=== PATIENT | male | born 1965 | race Caucasian/White ===

== ENCOUNTER 2018-11-24 16:16 | Observation (INO) | payer BC, OTHER ==
[~2018-11-24] VITALS: Ht 190.5 cm; Wt 116.6 kg
[2018-11-24 16:30] VITALS: BP 135/83
[2018-11-24] MEDS ORDERED: ROSUVASTATIN 40MG (16:38)
[2018-11-24] MEDS ORDERED: HCT (16:38)
[2018-11-24] MEDS ORDERED: LOSARTAN (16:38)
[2018-11-24] MEDS ORDERED: ASPIRIN 81 MG CHEW (CHILDREN'S ASA) PO ONE (16:45)
[2018-11-24] MEDS ORDERED: ONDANSETRON 4 MG/2 ML (SDV) Z0FRAN IVP ONE (16:45)
[2018-11-24] MEDS: NITROGLYCERIN 0.4 MG SL TABS BTL 25'S SL PRN ×2 (16:50→17:05)
[2018-11-24 16:53] LABS: WHITE BLOOD COUNT 7.9 10^3/uL (4.3-11.0)
[2018-11-24 16:54] LABS: HEMATOCRIT 44 % (40-54); HEMOGLOBIN 15.1 G/DL (13.3-17.7); MEAN CORPUSCULAR HEMOGLOBIN 31 PG (25-34); MEAN CORPUSCULAR HGB CONC 34 G/DL (32-36); MEAN CORPUSCULAR VOLUME 89 FL (80-99); MEAN PLATELET VOLUME 9.4 FL (7.4-10.4); PLATELET COUNT 206 10^3/uL (130-400); RED CELL DISTRIBUTION WIDTH 13.3 % (10.0-14.5)
[2018-11-24 16:55] LABS: BASOPHILS % (AUTO) 0 % (0-10); EOSINOPHILS # (AUTO) 0.1 10^3/uL (0.0-0.3); EOSINOPHILS % (AUTO) 2 % (0-10); LYMPHOCYTES # (AUTO) 1.5 X 10^3 (1.0-4.0); LYMPHOCYTES % (AUTO) 19 % (12-44); MONOCYTES # (AUTO) 0.8 X 10^3 (0.0-1.0); MONOCYTES % (AUTO) 10 % (0-12); NEUTROPHILS # (AUTO) 5.5 X 10^3 (1.8-7.8); NEUTROPHILS % (AUTO) 69 % (42-75)
[2018-11-24 17:00] VITALS: BP 118/67
[2018-11-24 17:02] LABS: PROTHROMBIN TIME PATIENT 13.5 SEC (12.2-14.7)
--- NOTE | 2018-11-24 17:09 | ED Chest Pain ---
General Chief Complaint: Chest Pain Stated Complaint: CHEST PAIN, SOB Nursing Triage Note: PT REPORTSHE WAS RIDING IN A CAR BACK FROM [facility] AND STARTED HAVING CHEST TIGHTNESS, SHORTNESS OF BREATH, AND FEELING TIRED. HE HAS FELT NAUSEATED OFF AND ON ALL DAY. Nursing Sepsis Screen: No Definite Risk History of Present Illness Date Seen by Provider: Nov 24, 2018 Time Seen by Provider: 16:30 Initial Comments The patient is a 53-year-old male with a history of hypertension, hyperlipidemia, coronary artery disease status post stenting of the LAD (per pt) more than 10 years ago, current and longstanding active tobacco abuse. He presents with concern for acute onset of dull, squeezing, pressure-like substernal chest discomfort with onset about 30 minutes prior to arrival while he was riding in a car back from [facility]. Pain radiates to the left shoulder into the neck and straight through to the intrascapular back. Discomfort is not described as ripping or tearing. Associated nausea which began about 1 hour prior to onset of chest discomfort. Associated mild shortness of breath. No associated fever, vomiting, hematemesis, hematochezia, melena, cough, diaphoresis, abdominal pain, flank pain. Patient has never had this kind of discomfort before. Patient denies recent immobilization, hemoptysis, surgery, calf pain or swelling, personal or family history of venous thromboembolic disease, estrogen or steroid use. Allergies and Home Medications Allergies Coded Allergies: morphine (Verified Allergy, Mild, 11/24/18) Patient Home Medication List Home Medication List Reviewed: Yes Review of Systems Review of Systems Constitutional: see HPI All Other Systems Reviewed Negative Unless Noted: Yes (Negative excepted noted.) Past Dhvymqo-Qdeydy-Tmzvpz Hx Past Med/Social Hx: Reviewed Nursing Past Med/Soc Hx Patient Social History Alcohol Use: Denies Use Recreational Drug Use: No Smoking Status: Current Everyday Smoker Type Used: Cigarettes 2nd Hand Smoke Exposure: Yes Recent Foreign Travel: No Contact w/Someone Who Travel: No Recent Infectious Disease Expo: No Recent Hopitalizations: No Physical Abuse: No Sexual Abuse: No Mistreated: No Fear: No Seasonal Allergies Seasonal Allergies: No Past Medical History Surgeries: Yes Coronary Stent Respiratory: No Cardiac: Yes High Cholesterol, Hypertension Neurological: No Genitourinary: No Gastrointestinal: No Musculoskeletal: No Endocrine: No HEENT: No Cancer: No Psychosocial: No Integumentary: No Blood Disorders: No Family Medical History Reviewed Nursing Family Hx Physical Exam Vital Signs Vital Signs - First Documented 11/24/18 11/24/18 16:19 16:30 Temp 96.8 Pulse 69 Resp 17 B/P (MAP) 123/80 (94) Pulse Ox 99 O2 Delivery Room Air Capillary Refill : Less Than 3 Seconds Height, Weight, BMI Height: 6'3.00" Weight: 260lbs. oz. 117.032993uh; BMI Method:Stated General Appearance: No Apparent Distress Other comments This is an older male appearing nontoxic and in no acute distress. Head is normocephalic and atraumatic. Neck is supple and nontender. Oropharynx is moist. Lungs are clear to auscultation at all stations. There is a normal S1 and S2 without rubs or gallops and capillary refill is appropriate, less than 2 seconds globally. Abdomen soft, nontender and nondistended without pulsatile mass noted. Skin is warm and dry without cyanosis, clubbing or edema. Psychiatrically, the patient demonstrates appropriate mood and affect and is alert. Evaluation of the bilateral upper and lower extremities reveals 2+ peripheral pulses to all extremities and all extremities warm and well perfused. Progress/Results/Core Measures Results/Orders Lab Results Laboratory Tests Test 11/24/18 16:24 Range/Units White Blood Count 7.9 4.3-11.0 10^3/uL Red Blood Count 4.95 4.35-5.85 10^6/uL Hemoglobin 15.1 13.3-17.7 G/DL Hematocrit 44 40-54 % Mean Corpuscular Volume 89 80-99 FL Mean Corpuscular Hemoglobin 31 25-34 PG Mean Corpuscular Hemoglobin Concent 34 32-36 G/DL Red Cell Distribution Width 13.3 10.0-14.5 % Platelet Count 206 130-400 10^3/uL Mean Platelet Volume 9.4 7.4-10.4 FL Neutrophils (%) (Auto) 69 42-75 % Lymphocytes (%) (Auto) 19 12-44 % Monocytes (%) (Auto) 10 0-12 % Eosinophils (%) (Auto) 2 0-10 % Basophils (%) (Auto) 0 0-10 % Neutrophils # (Auto) 5.5 1.8-7.8 X 10^3 Lymphocytes # (Auto) 1.5 1.0-4.0 X 10^3 Monocytes # (Auto) 0.8 0.0-1.0 X 10^3 Eosinophils # (Auto) 0.1 0.0-0.3 10^3/uL Basophils # (Auto) 0.0 0.0-0.1 10^3/uL Prothrombin Time 13.5 12.2-14.7 SEC INR Comment 1.0 0.8-1.4 Activated Partial Thromboplast Time 33 24-35 SEC Sodium Level 142 135-145 MMOL/L Potassium Level 4.2 3.6-5.0 MMOL/L Chloride Level 103 98-107 MMOL/L Carbon Dioxide Level 27 21-32 MMOL/L Anion Gap 12 5-14 MMOL/L Blood Urea Nitrogen 22 H 7-18 MG/DL Creatinine 0.97 0.60-1.30 MG/DL Estimat Glomerular Filtration Rate > 60 BUN/Creatinine Ratio 23 Glucose Level 87 70-105 MG/DL Calcium Level 9.5 8.5-10.1 MG/DL Corrected Calcium 8.5-10.1 MG/DL Magnesium Level 2.1 1.8-2.4 MG/DL Total Bilirubin 0.6 0.1-1.0 MG/DL Aspartate Amino Transf (AST/SGOT) 40 H 5-34 U/L Alanine Aminotransferase (ALT/SGPT) 55 0-55 U/L Alkaline Phosphatase 75 40-136 U/L Troponin T 14 <=15 NG/L Pro-B-Type Natriuretic Peptide 88.5 H <75.0 PG/ML Total Protein 7.5 6.4-8.2 GM/DL Albumin 4.7 H 3.2-4.5 GM/DL My Orders Orders - AICHA MCLAUGHLIN MD Nitroglycerin 0.4 Mg Btl 25's (Nitrostat (11/24/18 16:45) Aspirin Chewable Tablet (Baby Aspirin Ch (11/24/18 16:45) Cbc With Automated Diff (11/24/18 16:44) Magnesium (11/24/18 16:44) Ekg Tracing (11/24/18 16:44) Comprehensive Metabolic Panel (11/24/18 16:44) Protime With Inr (11/24/18 16:44) Partial Thromboplastin Time (11/24/18 16:44) Monitor-Rhythm Ecg Trace Only (11/24/18 16:44) Ed Iv/Invasive Line Start (11/24/18 16:44) Troponin T (11/24/18 16:44) Probnp Fs (11/24/18 16:44) Ondansetron Injection (Zofran Injectio (11/24/18 16:45) Ct Angio Chest W (11/24/18 16:44) Iohexol Injection (Omnipaque 350 Mg/Ml 1 (11/24/18 17:15) Received Contrast (Hold Metformin- Contr (11/24/18 17:15) Sodium Chloride Flush (Catheter Flush Sy (11/24/18 17:15) Ns (Ivpb) (Sodium Chloride 0.9% Ivpb Bag (11/24/18 17:15) Fentanyl Injection (Sublimaze Injection (11/24/18 17:30) Lidocaine 2% Viscous 15 Ml (Xylocaine Vi (11/24/18 17:45) Ns Iv 1000 Ml (Sodium Chloride 0.9%) (11/24/18 17:39) Antacid Suspension (Mylanta Suspension (11/24/18 17:45) Famotidine Injection (Pepcid Injection) (11/24/18 17:39) Medications Given in ED Current Medications Medications Dose Ordered Sig/Kulwant Route Start Time Stop Time Status Last Admin Dose Admin Al Hydrox/Mg Hydrox/Simethicone 30 ml ONCE ONCE PO 11/24/18 17:45 11/24/18 17:46 DC 11/24/18 17:52 30 ML Aspirin 324 mg ONCE ONCE PO 11/24/18 16:45 11/24/18 16:47 DC 11/24/18 16:50 324 MG Fentanyl Citrate 50 mcg ONCE ONCE IVP 11/24/18 17:30 11/24/18 17:31 DC 11/24/18 17:33 50 MCG Iohexol 150 ml ONCE ONCE IV 11/24/18 17:15 11/24/18 17:16 DC 11/24/18 17:51 125 ML Lidocaine HCl 15 ml ONCE ONCE PO 11/24/18 17:45 11/24/18 17:46 DC 11/24/18 17:52 15 ML Nitroglycerin 0.4 mg UD PRN SL 11/24/18 16:45 11/24/18 17:05 0.4 MG Ondansetron HCl 4 mg ONCE ONCE IVP 11/24/18 16:45 11/24/18 16:47 DC 11/24/18 16:49 4 MG Sodium Chloride 10 ml NEEDED PRN IV 11/24/18 17:15 11/24/18 17:52 10 ML Sodium Chloride 100 ml ONCE ONCE IV 11/24/18 17:15 11/24/18 17:16 DC 11/24/18 17:51 100 ML Vital Signs/I&O 11/24/18 11/24/18 11/24/18 16:19 16:30 16:31 Temp 96.8 Pulse 69 70 Resp 17 18 B/P (MAP) 123/80 (94) 135/83 (100) Pulse Ox 99 O2 Delivery Room Air Room Air Room Air Blood Pressure Mean: 94 Progress Progress Note : Time: 17:10 Progress Note 53-year-old gentleman with significant risk factors for acute coronary syndrome who presents with rather typical anginal chest discomfort beginning 30 minutes prior to arrival. Initial EKG nonischemic. We will check labs and, given radiation of discomfort to the interscapular back, will check CT angiography of the chest. Plan will minimally be for an observation admission for ACS rule out and attention from cardiology. Will give nitroglycerin sublingually as well as an aspirin. Patient and family understand and agree with the plan of care. Update: Workup generally unremarkable and reassuring. Patient is continuing to have some discomfort but states it is improved. He has required some fentanyl (morphine allergy) and did not seem to have much relief with nitroglycerin. Also tried GI cocktail and Pepcid. Still pending read on CT angiography of the chest at this time, but low suspicion for vascular problem. We'll proceed with admission for ACS rule out as per plan above. Dr. Starks graciously accepts for telemetry observation admission. Patient and family updated on plan of care and findings of workup thus far and understand and agreed all questions are an swered. Comment Sinus rhythm, no acute ST elevation or depression,, T-wave inversion in lead 3, uncertain chronicity, rate 68, MO 168, QRS 107, QTc 455, interpretation. Diagnostic Imaging Comments CT ANGIO CHEST W PROCEDURE: CT angiography of the chest with contrast. TECHNIQUE: Multiple contiguous axial images were obtained through the chest after uneventful bolus administration of intravenous contrast. 2D reconstructed CTA MIP acquisitions were also performed. Auto Exposure Controls were utilized during the CT exam to meet ALARA standards for radiation dose reduction. INDICATION: Nausea. Chest pain. FINDINGS: There is good opacification of the aorta and pulmonary arteries. There are no filling defects to suggest pulmonary emboli at this time. Aorta shows no evidence of aneurysm or dissection. Mild atherosclerotic changes. No mediastinal or hilar adenopathy of pathologic size. No pleural effusions or pericardial effusion. There is a small fatty lesion in the left adrenal gland measuring 11 mm. IMPRESSION: 1. No evidence of pulmonary emboli. No evidence of aortic aneurysm or dissection. 2. Small 11 mm fatty lesion in the left adrenal gland likely representing adenoma. Clinical followup. Dictated on workstation # [id number] Departure Impression Primary Impression: Other chest pain Disposition: ADMITTED INPATIENT Condition: Stable Departure-Patient Inst. Referrals: MARY DEL CID MD (PCP) Primary Care Physician AICHA MCLAUGHLIN MD Nov 24, 2018 17:09
[2018-11-24] MEDS ORDERED: HOLD METFORMIN - RECEIVED CONTRAST 20 ML VIAL IV SCH (17:15)
[2018-11-24] MEDS ORDERED: NS 100 ML (IVPB) BAG IV ONE (17:15)
[2018-11-24] MEDS ORDERED: IOHEXOL 350 MG/ML 150 ML (OMNIPAQUE 350) VIAL IV ONE (17:15)
[2018-11-24] MEDS ORDERED: CATHETER FLUSH 10 ML SYR IV PRN (17:15)
[2018-11-24 17:30] VITALS: BP 108/65
[2018-11-24] MEDS ORDERED: fentaNYL INJECTION 100 MCG/2 ML AMP IVP ONE (17:30)
[2018-11-24 17:31] LABS: ALANINE AMINOTRANSFERASE 55 U/L (0-55); ALKALINE PHOSPHATASE 75 U/L (40-136); BILIRUBIN,TOTAL 0.6 MG/DL (0.1-1.0); BUN/CREATININE RATIO 23; CALCIUM 9.5 MG/DL (8.5-10.1); CARBON DIOXIDE 27 MMOL/L (21-32); CHLORIDE 103 MMOL/L (98-107); CREATININE SERUM 0.97 MG/DL (0.60-1.30); GFR ESTIMATED > 60; GLUCOSE 87 MG/DL (70-105); MAGNESIUM 2.1 MG/DL (1.8-2.4); POTASSIUM 4.2 MMOL/L (3.6-5.0); SODIUM 142 MMOL/L (135-145); TOTAL PROTEIN 7.5 GM/DL (6.4-8.2)
[2018-11-24 17:32] LABS: ALBUMIN 4.7 GM/DL (3.2-4.5)
[2018-11-24] MEDS ORDERED: FAMOTIDINE 20MG/2ML IV (PEPCID) IV STA (17:39)
[2018-11-24] MEDS ORDERED: NS IV 1000 ML 1,000 ML IV STA (17:39)
[2018-11-24] MEDS ORDERED: ANTACID SUSP 30 ML UDC (MYLANTA) PO ONE (17:45)
[2018-11-24] MEDS ORDERED: LIDOCAINE 2% VISCOUS 15 ML UDC PO ONE (17:45)
[2018-11-24 18:00] VITALS: BP 121/53
--- NOTE | 2018-11-24 18:08 | NUR ---
Notified nursing animal humane agent supervisor of need for room placement.
--- NOTE | 2018-11-24 18:18 | Diagnostic Imaging Report ---
PROCEDURE: CT angiography of the chest with contrast. TECHNIQUE: Multiple contiguous axial images were obtained through the chest after uneventful bolus administration of intravenous contrast. 2D reconstructed CTA MIP acquisitions were also performed. Auto Exposure Controls were utilized during the CT exam to meet ALARA standards for radiation dose reduction. INDICATION: Nausea. Chest pain. FINDINGS: There is good opacification of the aorta and pulmonary arteries. There are no filling defects to suggest pulmonary emboli at this time. Aorta shows no evidence of aneurysm or dissection. Mild atherosclerotic changes. No mediastinal or hilar adenopathy of pathologic size. No pleural effusions or pericardial effusion. There is a small fatty lesion in the left adrenal gland measuring 11 mm. IMPRESSION: 1. No evidence of pulmonary emboli. No evidence of aortic aneurysm or dissection. 2. Small 11 mm fatty lesion in the left adrenal gland likely representing adenoma. Clinical followup. Dictated by: Dictated on workstation # [id number]
[2018-11-24] MEDS ORDERED: fentaNYL INJECTION 100 MCG/2 ML AMP IVP PRN (19:00)
[2018-11-24] MEDS ORDERED: ALPRAZolam 0.25 MG (XANAX) TAB PO PRN (19:00)
[2018-11-24] MEDS ORDERED: diphenhydrAMINE 25 MG TAB (BENADRYL) PO PRN (19:00)
[2018-11-24] MEDS ORDERED: ACETAMINOPHEN 500 MG TAB (TYLENOL) PO PRN (19:00)
[2018-11-24] MEDS ORDERED: DOCUSATE SODIUM 100 MG (COLACE) CAP PO PRN (19:00)
[2018-11-24] MEDS ORDERED: ONDANSETRON 4 MG/2 ML (SDV) Z0FRAN IVP PRN (19:00)
[2018-11-24] MEDS ORDERED: HYDROcodone/APAP 5 MG/325 MG (LORTAB) TAB PO PRN (19:00)
[2018-11-24] MEDS ORDERED: LOPERAMIDE 2 MG (IMODIUM) CAP PO PRN (19:00)
[2018-11-24] MEDS ORDERED: guaiFENesin/CODEINE (ROBITUSSIN AC) 10ML UDC PO PRN (19:00)
[2018-11-24] MEDS ORDERED: MELATONIN 3 MG TABLET PO PRN (19:00)
[2018-11-24 19:25] VITALS: BP 123/77
--- NOTE | 2018-11-24 19:25 | NUR ---
LUIS ALFREDO BISHOP admitted to room 417-1, with an admitting diagnosis of CHEST PAIN, on 11/24/18 from [facility] via EMS, accompanied by FINAL BLOCK PRESS OPERATOR.LUIS ALFREDO BISHOP introduced to surroundings, call light, bed controls, phone, TV, temperature control, lights, meal times, smoking policy, visitor policy, side rail policy, bathrooms and showers.
[2018-11-24] MEDS: CATHETER FLUSH 10 ML SYR IV SCH (20:36)
[2018-11-24] MEDS: SENNA W/DOCUSATE (SENOKOT S) TABLET PO SCH (21:19)
[2018-11-24 23:39] VITALS: BP 114/68
[2018-11-25] MEDS ORDERED: REGADENOSON 0.4 MG/5 ML SYR (LEXISCAN) IV ONE ×2 (00:15→07:56)
[2018-11-25 03:31] VITALS: BP 103/66
[2018-11-25] MEDS: CATHETER FLUSH 10 ML SYR IV SCH (05:06)
[2018-11-25 05:48] LABS: BASOPHILS % (AUTO) 0 % (0-10); EOSINOPHILS # (AUTO) 0.2 10^3/uL (0.0-0.3); EOSINOPHILS % (AUTO) 4 % (0-10); HEMATOCRIT 42 % (40-54); HEMOGLOBIN 14.3 G/DL (13.3-17.7); LYMPHOCYTES # (AUTO) 1.1 X 10^3 (1.0-4.0); LYMPHOCYTES % (AUTO) 21 % (12-44); MEAN CORPUSCULAR HEMOGLOBIN 30 PG (25-34); MEAN CORPUSCULAR HGB CONC 34 G/DL (32-36); MEAN CORPUSCULAR VOLUME 89 FL (80-99); MEAN PLATELET VOLUME 9.5 FL (7.4-10.4); MONOCYTES # (AUTO) 0.5 X 10^3 (0.0-1.0); MONOCYTES % (AUTO) 9 % (0-12); NEUTROPHILS # (AUTO) 3.6 X 10^3 (1.8-7.8); NEUTROPHILS % (AUTO) 66 % (42-75); PLATELET COUNT 181 10^3/uL (130-400); RED CELL DISTRIBUTION WIDTH 13.3 % (10.0-14.5); WHITE BLOOD COUNT 5.4 10^3/uL (4.3-11.0)
[2018-11-25 06:05] LABS: ALANINE AMINOTRANSFERASE 52 U/L (0-55); ALKALINE PHOSPHATASE 60 U/L (40-136); BILIRUBIN,TOTAL 0.8 MG/DL (0.1-1.0); BUN/CREATININE RATIO 24; CALCIUM 8.7 MG/DL (8.5-10.1); CARBON DIOXIDE 23 MMOL/L (21-32); CHLORIDE 102 MMOL/L (98-107); CREATININE SERUM 0.78 MG/DL (0.60-1.30); GFR ESTIMATED > 60; GLUCOSE 86 MG/DL (70-105); POTASSIUM 3.9 MMOL/L (3.6-5.0); SODIUM 135 MMOL/L (135-145); TOTAL PROTEIN 6.3 GM/DL (6.4-8.2)
--- NOTE | 2018-11-25 07:10 | NUR ---
TO STRESS TEST PER W/C.
--- NOTE | 2018-11-25 07:11 | Consultation-Cardiology ---
HPI-Cardiology Cardiology Consultation Date of Consultation 11/25/18 Date of Admission Time Seen by Provider: 07:08 Indication: chest pain HPI 53 years old gentleman with history of coronary artery disease, reporting having a stent done about 10 years ago. No recent cardiac workup, was in his usual state of health until yesterday afternoon when he had sudden onset chest pain described as dull achiness all over his chest radiating to the shoulder. Came into the emergency room, since arrival to the hospital had few episodes of feeling short episode of pain resolving spontaneously. Admit having some dyspnea with the chest pain initially. No palpitation, no syncope or near syncopal episodes, no similar episodes in the past Home Medications & Allergies Allergies: Coded Allergies: morphine (Verified Allergy, Mild, 11/24/18) Home Medication List Reviewed: Yes JDY-Chgczp-Okpsvu Hx Patient Social History Marital Status: Employed/Student: employed Alcohol Use: Denies Use Recreational Drug Use: No Smoking Status: Current Everyday Smoker Type Used: Cigarettes 2nd Hand Smoke Exposure: Yes Recent Foreign Travel: No Recent Infectious Disease Expo: No Recent Hopitalizations: No Immunizations Up To Date Date of Pneumonia Vaccine: Jun 26, 2015 Past Medical History described below Family Medical History Family Medical Hx noncontributory Review of Systems-General Review of Systems Constitutional: no symptoms reported, see HPI EENTM: see HPI, no symptoms reported Respiratory: see HPI; No cough, No dyspnea on exertion, No hemoptysis, No orthopnea, No phlegm; short of breath; No stridor, No wheezing, No other Cardiovascular: see HPI, chest pain; No edema, No Hx of Intervention, No palpitations, No syncope, No vascular heart diseas, No other Gastrointestinal: no symptoms reported, see HPI Genitourinary: no symptoms reported, see HPI Musculoskeletal: no symptoms reported, see HPI Skin: no symptoms reported, see HPI Psychiatric/Neurological: No Symptoms Reported, See HPI All Other Systems Reviewed Negative Unless Noted: Yes (Negative excepted noted.) Reviewed Test Results Reviewed Test Results Lab Laboratory Tests Test 11/24/18 16:24 11/25/18 00:16 11/25/18 05:13 Range/Units White Blood Count 7.9 5.4 4.3-11.0 10^3/uL Red Blood Count 4.95 4.72 4.35-5.85 10^6/uL Hemoglobin 15.1 14.3 13.3-17.7 G/DL Hematocrit 44 42 40-54 % Mean Corpuscular Volume 89 89 80-99 FL Mean Corpuscular Hemoglobin 31 30 25-34 PG Mean Corpuscular Hemoglobin Concent 34 34 32-36 G/DL Red Cell Distribution Width 13.3 13.3 10.0-14.5 % Platelet Count 206 181 130-400 10^3/uL Mean Platelet Volume 9.4 9.5 7.4-10.4 FL Neutrophils (%) (Auto) 69 66 42-75 % Lymphocytes (%) (Auto) 19 21 12-44 % Monocytes (%) (Auto) 10 9 0-12 % Eosinophils (%) (Auto) 2 4 0-10 % Basophils (%) (Auto) 0 0 0-10 % Neutrophils # (Auto) 5.5 3.6 1.8-7.8 X 10^3 Lymphocytes # (Auto) 1.5 1.1 1.0-4.0 X 10^3 Monocytes # (Auto) 0.8 0.5 0.0-1.0 X 10^3 Eosinophils # (Auto) 0.1 0.2 0.0-0.3 10^3/uL Basophils # (Auto) 0.0 0.0 0.0-0.1 10^3/uL Prothrombin Time 13.5 12.2-14.7 SEC INR Comment 1.0 0.8-1.4 Activated Partial Thromboplast Time 33 24-35 SEC Sodium Level 142 135 135-145 MMOL/L Potassium Level 4.2 3.9 3.6-5.0 MMOL/L Chloride Level 103 102 98-107 MMOL/L Carbon Dioxide Level 27 23 21-32 MMOL/L Anion Gap 12 10 5-14 MMOL/L Blood Urea Nitrogen 22 H 19 H 7-18 MG/DL Creatinine 0.97 0.78 0.60-1.30 MG/DL Estimat Glomerular Filtration Rate > 60 > 60 BUN/Creatinine Ratio 23 24 Glucose Level 87 86 70-105 MG/DL Calcium Level 9.5 8.7 8.5-10.1 MG/DL Corrected Calcium 8.7 8.5-10.1 MG/DL Magnesium Level 2.1 1.8-2.4 MG/DL Total Bilirubin 0.6 0.8 0.1-1.0 MG/DL Aspartate Amino Transf (AST/SGOT) 40 H 32 5-34 U/L Alanine Aminotransferase (ALT/SGPT) 55 52 0-55 U/L Alkaline Phosphatase 75 60 40-136 U/L Troponin T 14 <=15 NG/L Pro-B-Type Natriuretic Peptide 88.5 H <75.0 PG/ML Total Protein 7.5 6.3 L 6.4-8.2 GM/DL Albumin 4.7 H 4.0 3.2-4.5 GM/DL Troponin I < 0.028 < 0.028 <0.028 NG/ML Physical Exam Physical Exam Vital Signs Vital Signs - First Documented 11/24/18 11/24/18 16:19 16:30 Temp 96.8 Pulse 69 Resp 17 B/P (MAP) 123/80 (94) Pulse Ox 99 O2 Delivery Room Air Capillary Refill : Less Than 3 Seconds Height, Weight, BMI Height: 6'3.00" Weight: 257lbs. 1.0oz. 116.898899vu; 32.1 BMI Method:Stated General Appearance: No Apparent Distress Eyes: Bilateral Eye Normal Inspection, Bilateral Eye PERRL, Bilateral Eye EOMI HEENT: PERRL/EOMI, TMs Normal, Normal ENT Inspection, Pharynx Normal, Moist Mucous Membranes Neck: Full Range of Motion, Normal Inspection, Non Tender, Supple, Carotid Bruit Respiratory: Chest Non Tender, Normal Breath Sounds, No Accessory Muscle Use, No Respiratory Distress Cardiovascular: Regular Rate, Rhythm, No Edema, No Gallop, No JVD, No Murmur, Normal Peripheral Pulses Gastrointestinal: Normal Bowel Sounds, No Organomegaly, No Pulsatile Mass, Non Tender, Soft Back: Normal Inspection, No CVA Tenderness, No Vertebral Tenderness Extremity: Normal Capillary Refill, Normal Inspection, Normal Range of Motion, Non Tender, No Calf Tenderness, No Pedal Edema Neurologic/Psychiatric: Alert, Oriented x3, No Motor/Sensory Deficits, Normal Mood/Affect Skin: Normal Color, Warm/Dry Lymphatic: No Adenopathy A/P-Cardiology Admission Diagnosis Chest pain Coronary artery disease Hypertension Hyperlipidemia Assessment/Plan Chest pain nonspecific etiology, resembling angina, EKG and cardiac enzyme did not show any acute abnormality, planning to proceed with Lexiscan stress test. Coronary artery disease, history of stent done about 10 years ago, no recent cardiac workup. Hypertension, restart home medication monitor blood pressure Hyperlipidemia, maintained on Crestor, monitor lipids. 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
[2018-11-25] MEDS: CATHETER FLUSH 10 ML SYR IV PRN ×2 (07:27→08:13)
[2018-11-25 08:00] VITALS: BP 119/80
[2018-11-25 08:11] VITALS: BP 101/64
[2018-11-25] MEDS ORDERED: LOSA1TAB26 PO (08:50)
[2018-11-25] MEDS ORDERED: ROSU40TA22 PO (08:50)
[2018-11-25] MEDS ORDERED: ASPI325T32 PO (09:56)
--- NOTE | 2018-11-25 09:58 | NUR ---
PATIENT VERIFIED HE TAKES THE TWO PRESCRIPTION MEDICATIONS THAT ARE SHOWN ON THE EXT MED HX, HE ALSO TAKES ASPIRIN OTC DAILY.
[2018-11-25] MEDS: SENNA W/DOCUSATE (SENOKOT S) TABLET PO SCH (10:57)
--- NOTE | 2018-11-25 11:27 | Short Stay Summary-Hospitalist ---
History of Present Illness HPI/Chief Complaint Chief complaint: Chest pressure History of present illness: This is a 53-year-old white male patient of Dr. Bonilla in [place] who presented to [place] ER with concerning chest pain symptoms. All troponin series was negative. Cardiology was consulted. Patient underwent cardiac stress test. Medication from home was reviewed and modified per cardiology recommendations. The chest pain that he had was very atypical in nature did not have any recurrence while he was hospitalized and he was deemed stable for discharge with close follow-up with Dr. Bonilla. Source: patient Date Seen 11/25/18 Time Seen by a Provider: 10:00 Attending Physician Master Starks MD PCP Reji Bonilla MD Referring Physician Date of Admission Nov 24, 2018 at 18:00 Home Medications & Allergies Home Medications Reviewed patient Home Medication Reconciliation performed by pharmacy medication reconciliations boiler/chiller technician and/or nursing. Patients Allergies have been reviewed. Allergies Allergies Coded Allergies morphine (Verified Allergy, Mild, 11/24/18) Past Ktizjet-Snnxwv-Yxlbzb Hx Past Med/Social Hx: Reviewed Nursing Past Med/Soc Hx, Reviewed and Corrections made Patient Social History Marrital Status: Employed/Student: employed Alcohol Use: Denies Use Recreational Drug Use: No Smoking Status: Current Everyday Smoker Type Used: Cigarettes 2nd Hand Smoke Exposure: Yes Recent Foreign Travel: No Contact w/other who traveled: No Recent Hopitalizations: No Recent Infectious Disease Expo: No Immunizations Up To Date Date of Pneumonia Vaccine: Jun 26, 2015 Seasonal Allergies Seasonal Allergies: No Past Medical History Surgeries: Coronary Stent Cardiac: High Cholesterol, Hypertension History of Blood Disorders: No Family History Reviewed Nursing Family Hx Review of Systems Constitutional: see HPI Respiratory: dyspnea on exertion Cardiovascular: chest pain, palpitations Physical Exam Physical Exam Vital Signs Vital Signs - First Documented 11/24/18 11/24/18 16:19 16:30 Temp 96.8 Pulse 69 Resp 17 B/P (MAP) 123/80 (94) Pulse Ox 99 O2 Delivery Room Air Capillary Refill : Less Than 3 Seconds Height, Weight, BMI Height: 6'3.00" Weight: 257lbs. 1.0oz. [id number]; 32.1 BMI Method:Stated General Appearance: No Apparent Distress Eyes: Bilateral Eye Normal Inspection, Bilateral Eye PERRL, Bilateral Eye EOMI HEENT: PERRL/EOMI, TMs Normal, Normal ENT Inspection, Pharynx Normal, Moist Mucous Membranes Neck: Full Range of Motion, Normal Inspection, Non Tender, Supple, Carotid Bruit Respiratory: Chest Non Tender, Normal Breath Sounds, No Accessory Muscle Use, No Respiratory Distress Cardiovascular: Regular Rate, Rhythm, No Edema, No Gallop, No JVD, No Murmur, Normal Peripheral Pulses Gastrointestinal: Normal Bowel Sounds, No Organomegaly, No Pulsatile Mass, Non Tender, Soft Back: Normal Inspection, No CVA Tenderness, No Vertebral Tenderness Extremity: Normal Capillary Refill, Normal Inspection, Normal Range of Motion, Non Tender, No Calf Tenderness, No Pedal Edema Neurologic/Psychiatric: Alert, Oriented x3, No Motor/Sensory Deficits, Normal Mood/Affect Skin: Normal Color, Warm/Dry Lymphatic: No Adenopathy Results Results/Procedures Labs Laboratory Tests 11/24/18 16:24 11/25/18 05:13 Patient resulted labs reviewed. Short Stay Diagnosis Discharge Diagnosis-Short Stay Admission Diagnosis Chest pain atypical Smoker Hypertension Hyperlipidemia on statin Final Discharge Diagnosis Chest pain atypical Smoker Hypertension Hyperlipidemia on statin Conclusion Plan Discharge home Dr. Bonilla follow-up Dr. Bonner follow-up Medications to restarted home modified per cardiology Diagnosis/Problems Diagnosis/Problems (1) Chest pain Status: Acute Qualifiers: Qualified Codes: R07.9 - Chest pain, unspecified Clinical Quality Measures AMI/AHF: ASA po Prior to arrival: No DVT/VTE Risk/Contraindication: Risk Factor Score Per Nursin RFS Level Per Nursing on Admit: 1=Low/No VTE PPX HORTENSIA LEWIS DO Nov 25, 2018 11:27
[2018-11-25 12:00] VITALS: BP 107/64
[2018-11-25] MEDS ORDERED: ASPI-983 PO (12:22)
[2018-11-25] MEDS ORDERED: METO-351 PO (12:22)
[2018-11-25 12:37] LABS: CHOLESTEROL 114 MG/DL (< 200); HDL CHOLESTEROL 41 MG/DL (40-60); TRIGLYCERIDES 55 MG/DL (<150); VLDL CHOLESTEROL 11 MG/DL (5-40)
[2018-11-25 14:10] VITALS: BP 107/64
--- NOTE | 2018-11-25 14:10 | NUR ---
LUIS ALFREDO BISHOP demonstrates understanding of discharge instructions and accurately returns instructions upon questioning. Copy of Post-Discharge Instructions given to PT. LUIS ALFREDO BISHOP is able to manage continuing needs after discharge. Patients belongings returned to PT. Patient discharged from [facility] on 11/25/18 at 1410. LUIS ALFREDO BISHOP left floor via W/C, accompanied by STAFF.
--- NOTE | 2018-11-25 15:26 | STRESS TEST ---
DATE OF SERVICE: 11/25/2018 LEXISCAN MYOVIEW STRESS TEST REPORT REFERRING PHYSICIAN: Dr. Regan Bonilla. FINDINGS: Baseline heart rate is 57. Baseline blood pressure is 105/68. Baseline EKG is sinus rhythm with no ischemic changes. SUMMARY: The patient received 10.96 mCi of technetium-99 Myoview and the resting images were obtained. Then, the patient received 0.4 mg of Lexiscan followed by 32.8 mCi of technetium-99 Myoview. Throughout the test, there were no EKG changes. The resting and stress images were reviewed and compared in the short axis, horizontal long axis, and vertical long axis views. Review of the images showed fix defect involving the true apex, anteroapical and inferoapical segment with mild reversibility at the anterior apical segment. SSS is 2, SDS 2, TID value 0.93. On the gated images, the left ventricle appeared to be in normal size with normal contractility. Calculated ejection fraction is 48%. CONCLUSION: 1. The patient tolerated Lexiscan well. 2. Diaphragmatic attenuation affecting the quality of the images, overall nondiagnostic finding with fixed defect involving the true apex, anteroapical and inferoapical segment and mild reversibility at the anteroapical segment. 3. Normal left ventricular size with normal contractility. Calculated ejection fraction is 48%. 4. I discussed with the patient the management plan, discussed the possibility of cardiac catheterization versus monitoring at this time. We will initiate beta blockers and monitor him and we will consider a cardiac catheterization if he becomes symptomatic. Job ID: [id number] DocumentID: [id number] Dictated Date: 11/25/2018 12:23:44 [employer] Date: 11/25/2018 15:25:01 Dictated By: ALAN TORRES MD
== END 2018-11-25 14:10 | disposition home or self-care (01) ==
LOC: ER FS 16:18 → 4TH 18:00
PROVIDERS: ADMIT Internal Medicine; ATTEND Internal Medicine
DX: R07.89 Other chest pain (principal); I10 Essential (primary) hypertension; E78.00 Pure hypercholesterolemia, unspecified; F17.210 Nicotine dependence, cigarettes, uncomplicated; Z88.5 Allergy status to narcotic agent; Z95.5 Presence of coronary angioplasty implant and graft; Z79.899 Other long term (current) drug therapy; E66.9 Obesity, unspecified; Z68.32 Body mass index [BMI] 32.0-32.9, adult
CPT/HCPCS: 36415; 71275; 78452; 80053; 80061; 83735; 83880; 84484; 85025; 85610; 85730; 87804; 90471; 93005; 93017; 93041; 96374; 96375; G0378

== ENCOUNTER → 2019-01-30 | Outpatient (CLI) | payer BC ==
[~2019-01-30] MED LIST: ASPI-983 PO; ASPI325T32 PO; CATHETER FLUSH 10 ML SYR IV PRN; HCT; HOLD METFORMIN - RECEIVED CONTRAST 20 ML VIAL IV SCH; IOHEXOL 350 MG/ML 100 ML (OMNIPAQUE 350) VIAL IV ONE; LOSA1TAB26 PO; LOSARTAN; METO-351 PO; NS 100 ML (IVPB) BAG IV ONE; ROSU40TA23 PO; ROSUVASTATIN 40MG
[2019-01-30 09:28] LABS: ALANINE AMINOTRANSFERASE 35 U/L (0-55); ALBUMIN 4.4 GM/DL (3.2-4.5); ALKALINE PHOSPHATASE 62 U/L (40-136); BILIRUBIN,TOTAL 0.5 MG/DL (0.1-1.0); BUN/CREATININE RATIO 21; CALCIUM 9.1 MG/DL (8.5-10.1); CARBON DIOXIDE 23 MMOL/L (21-32); CHLORIDE 101 MMOL/L (98-107); CREATININE SERUM 0.72 MG/DL (0.60-1.30); GFR ESTIMATED > 60; GLUCOSE 111 MG/DL (70-105); POTASSIUM 4.1 MMOL/L (3.6-5.0); SODIUM 138 MMOL/L (135-145)
--- NOTE | 2019-01-30 11:10 | Diagnostic Imaging Report ---
PROCEDURE: CT chest with and without contrast. TECHNIQUE: Multiple contiguous axial images were obtained through the chest before and after administration of intravenous contrast. Auto Exposure Controls were utilized during the CT exam to meet ALARA standards for radiation dose reduction. INDICATION: Lung nodule COMPARISON: Comparison with 11/24/2018. FINDINGS: There are no suspicious pulmonary nodules. A few calcified nodules are seen in keeping with prior granulomatous infection. No edema or pneumonia. There is no pleural effusion or pneumothorax. Heart size is normal. No pericardial effusion. Aorta is normal in caliber. No central pulmonary embolism. There is no axillary, supraclavicular or mediastinal lymphadenopathy. 11 mm left adrenal nodule is unchanged with areas of low attenuation in keeping with an adenoma. The upper abdomen is otherwise normal. There are no suspicious osseous lesions. IMPRESSION: 1. No suspicious pulmonary nodules. 2. Stable left adrenal adenoma. Dictated by: Dictated on workstation # [id number]
== END ==
LOC: RAD FS 08:34
PROVIDERS: ATTEND Family Medicine
DX: E04.1 Nontoxic single thyroid nodule (principal); D35.02 Benign neoplasm of left adrenal gland; R91.1 Solitary pulmonary nodule
CPT/HCPCS: 36415; 71270; 80053